=== PATIENT | female | born 1985 | race African-American/Black ===

== ENCOUNTER 2018-04-16 20:15 | Emergency (ER) | payer OTHER ==
[~2018-04-16] VITALS: Ht 149.9 cm; Wt 77.7 kg
[2018-04-17] MEDS ORDERED: DIPHENHYDRAMINE 50MG/ML VIAL IV ONE (00:30)
[2018-04-17] MEDS ORDERED: METOCLOPRAMIDE HCL 10MG/2ML VIAL IV ONE (00:30)
[2018-04-17] MEDS ORDERED: SODIUM CHLORIDE 0.9% 1,000 ML IV ONE (00:30)
[2018-04-17 01:02] LABS: CLARITY URINE CLEAR (CLEAR); COLOR URINE YELLOW (YELLOW); KETONES URINE NEGATIVE (NEGATIVE); LEUKOCYTE ESTERASE URINE NEGATIVE (NEGATIVE); NITRITE URINE NEGATIVE (NEGATIVE); OCCULT BLOOD URINE NEGATIVE (NEGATIVE); PROTEIN URINE NEGATIVE (NEGATIVE); SPECIFIC GRAVITY URINE 1.011 (1.005-1.030); UROBILINOGEN URINE 0.2 E.U./dL (0.2-1.0)
[2018-04-17 03:10] VITALS: BP 130/77
== END 2018-04-17 03:29 | disposition home or self-care (01) ==
LOC: ER 20:43
DX: G43.909 Migraine, unspecified, not intractable, without status migrainosus (principal); F17.200 Nicotine dependence, unspecified, uncomplicated; Z88.0 Allergy status to penicillin; Z88.1 Allergy status to other antibiotic agents; Z90.710 Acquired absence of both cervix and uterus
CPT/HCPCS: 81003; 81025; 96374; 96375; 99284; J1200; J2765; J7030; Z7610

== ENCOUNTER 2022-09-27 01:00 | Inpatient (IN) | payer MEDICAID, OTHER ==
[~2022-09-27] VITALS: Ht 149.9 cm; Wt 92.1 kg
[2022-09-27] MEDS ORDERED: LOSARTAN POTASSIUM 25 MG TABLET PO ONE (02:45)
[2022-09-27 03:12] LABS: BASOPHILS % 0.7 % (0.0-2.0); EOSINOPHILS % 1.5 % (0.0-5.0); HEMATOCRIT. 39.1 % (36.0-48.0); HEMOGLOBIN. 12.9 g/dL (12.0-16.0); LYMPHOCYTES % 11.2 % (20.0-50.0); MEAN CORPUSCULAR HEMOGLOBIN 27.5 pg (28.0-32.0); MEAN CORPUSCULAR VOLUME 83.6 fL (81.0-99.0); MEAN PLATELET VOLUME 8.1 fl (7.4-10.4); NEUTROPHILS % 82.6 % (40.0-76.0); PLATELET 443 x1000/uL (130-400); RED BLOOD CELL COUNT 4.68 mill/uL (4.2-5.4); RED CELL DISTRIBUTION WIDTH 15.6 % (11.6-14.6)
[2022-09-27 03:17] LABS: BG BASE EXCESS -2.9 mmol/L (-2.0-2.0); BG CARBOXYHEMOGLOBIN 0.6 % (0.5-1.5); BG DEOXYHEMOGLOBIN 7.4 % (0.0-5.0); BG FRACTION INSPIRED OXYGEN 21; BG HCO3 ACT 20.2 mmol/L (22.0-26.0); BG METHEMOGLOBIN 0.4 % (0.0-1.5); BG OXYGEN SATURATION 92.5 % (92.0-98.5); BG OXYHEMOGLOBIN 91.6 % (94.0-97.0); BG PCO2 30.8 mmHg (35.0-45.0); BG PH 7.435 (7.350-7.450); BG PO2 64.8 mmHg (75.0-100.0); BG SAMPLE SITE RIGHT RADIAL; BG TOTAL HEMOGLOBIN 13.8 g/dL (12.0-18.0); BG VENT MODE ROOM AIR
[2022-09-27 03:27] LABS: CHLORIDE 109 mEq/L (98-107)
[2022-09-27] MEDS ORDERED: IOHEXOL-350 100 ML BOTTLE ONE (08:26)
[2022-09-27] MEDS ORDERED: LEVOFLOXACIN 500MG PREMIX 100 ML IV ONE (09:00)
[2022-09-27] MEDS ORDERED: ONDANSETRON HCL 4MG/2ML INJ IV PRN (10:30)
[2022-09-27] MEDS ORDERED: HYDROCODONE/ACETAMINOPHEN 5/325MG TABLET PO PRN (10:30)
[2022-09-27] MEDS ORDERED: DOCUSATE SODIUM 100MG CAPSULE PO PRN (10:30)
[2022-09-27] MEDS ORDERED: MAGNESIUM/ALUMINUM HYDROXIDE/SIMETHICONE 30ML UDC PO PRN (10:30)
[2022-09-27] MEDS ORDERED: ACETAMINOPHEN 325MG TABLET PO PRN ×2 (10:30)
[2022-09-27] MEDS ORDERED: NALOXONE HCL 0.4MG/ML VIAL IV PRN (11:00)
[2022-09-27] MEDS: AMLODIPINE 10MG TABLET PO SCH (11:24)
[2022-09-27] MEDS: ENOXAPARIN 40MG/0.4ML SYR SUBCUT SCH (11:24)
[2022-09-27 11:59] LABS: CLARITY URINE CLEAR (CLEAR); COLOR URINE YELLOW (YELLOW); KETONES URINE NEGATIVE (NEGATIVE); LEUKOCYTE ESTERASE URINE NEGATIVE (NEGATIVE); NITRITE URINE NEGATIVE (NEGATIVE); OCCULT BLOOD URINE 3+ (NEGATIVE); PROTEIN URINE NEGATIVE (NEGATIVE); SPECIFIC GRAVITY URINE 1.072 (1.005-1.030)
[2022-09-27] MEDS: IPRATROPIUM/ALBUTEROL 0.5-3(2.5)MG/3ML NEB HHN SCH ×2 (12:15→15:23)
[2022-09-27 12:30] LABS: *AMPHETAMINES SCREEN URINE NEGATIVE (NEGATIVE); *BARBITURATES SCREEN URINE NEGATIVE (NEGATIVE); *BENZODIAZEPINES SCREEN URINE NEGATIVE (NEGATIVE); *COCAINE SCREEN URINE NEGATIVE (NEGATIVE); METHADONE URINE SCREEN NEGATIVE (NEGATIVE); OPIATES URINE SCREEN NEGATIVE (NEGATIVE); PHENCYCLIDINE URINE SCREEN NEGATIVE (NEGATIVE)
[2022-09-27 12:45] LABS: CANNABINOID URINE SCREEN PRESUMTIVE POSITIVE (NEGATIVE)
[2022-09-27 13:12] LABS: BG CARBOXYHEMOGLOBIN 0.5 % (0.5-1.5); BG DEOXYHEMOGLOBIN 2.2 % (0.0-5.0); BG FRACTION INSPIRED OXYGEN 34; BG HCO3 ACT 21.2 mmol/L (22.0-26.0); BG METHEMOGLOBIN 0.4 % (0.0-1.5); BG OXYGEN SATURATION 97.8 % (92.0-98.5); BG OXYHEMOGLOBIN 96.9 % (94.0-97.0); BG PCO2 35.3 mmHg (35.0-45.0); BG PH 7.396 (7.350-7.450); BG PO2 100.7 mmHg (75.0-100.0); BG SAMPLE SITE RIGHT RADIAL; BG TOTAL HEMOGLOBIN 13.6 g/dL (12.0-18.0); BG VENT MODE NASAL CANNULA
[2022-09-27] MEDS ORDERED: LOSARTAN POTASSIUM 25 MG TABLET PO SCH (17:00)
[2022-09-27 20:00] VITALS: BP 150/100
[2022-09-27] MEDS: ALBUTEROL (0.083%) 2.5MG/3ML NEB HHN SCH (20:17)
[2022-09-27] MEDS: IPRATROPIUM BROMIDE (0.02%) 0.5MG/2.5ML NEB HHN SCH (20:17)
[2022-09-27] MEDS: FAMOTIDINE 20MG/2ML VIAL IV SCH (20:35)
[2022-09-27 21:57] VITALS: BP 133/102
[2022-09-28] VITALS: BP 153/100
[2022-09-28] MEDS: ALBUTEROL (0.083%) 2.5MG/3ML NEB HHN SCH ×6 (00:46→21:46)
[2022-09-28] MEDS: IPRATROPIUM BROMIDE (0.02%) 0.5MG/2.5ML NEB HHN SCH ×6 (00:46→21:46)
[2022-09-28 02:54] LABS: CREATINE KINASE MB FRACTION 1.2 ng/mL (0.5-3.6)
[2022-09-28 04:00] VITALS: BP 142/93
[2022-09-28 07:19] LABS: BASOPHILS % 0.5 % (0.0-2.0); EOSINOPHILS % 1.7 % (0.0-5.0); HEMATOCRIT. 38.5 % (36.0-48.0); HEMOGLOBIN. 12.8 g/dL (12.0-16.0); LYMPHOCYTES % 12.6 % (20.0-50.0); MEAN CORPUSCULAR HEMOGLOBIN 27.6 pg (28.0-32.0); MEAN CORPUSCULAR VOLUME 83.1 fL (81.0-99.0); MEAN PLATELET VOLUME 8.5 fl (7.4-10.4); MONOCYTES % 5.9 % (2.0-8.0); NEUTROPHILS % 79.3 % (40.0-76.0); PLATELET 424 x1000/uL (130-400); RED BLOOD CELL COUNT 4.64 mill/uL (4.2-5.4); RED CELL DISTRIBUTION WIDTH 16.2 % (11.6-14.6)
[2022-09-28 07:37] LABS: CHLORIDE 103 mEq/L (98-107)
[2022-09-28 07:57] LABS: HDL CHOLESTEROL 34 mg/dL (40-59); LDL CHOLESTEROL 83 mg/dL (5-100); T4 FREE 1.17 ng/dL (0.76-1.46)
[2022-09-28 08:00] VITALS: BP 148/105
[2022-09-28] MEDS: FAMOTIDINE 20MG/2ML VIAL IV SCH (09:14)
[2022-09-28] MEDS: ENOXAPARIN 40MG/0.4ML SYR SUBCUT SCH (09:14)
[2022-09-28] MEDS: AMLODIPINE 10MG TABLET PO SCH (09:15)
[2022-09-28] MEDS: GUAIFENESIN 200MG/10ML SUGAR FREE UDC PO PRN ×2 (10:06→16:14)
[2022-09-28] MEDS ORDERED: LEVOFLOXACIN 500MG PREMIX 100 ML IV SCH (10:30)
[2022-09-28] MEDS ORDERED: PNEUMOCOCCAL 23-VAL P-SAC VAC 0.5 ML IM ONE (11:00)
[2022-09-28] MEDS ORDERED: INFLUENZA VACCINE 05/PF 0.5 ML SYRINGE IM ONE (11:00)
[2022-09-28] MEDS: CLONIDINE 0.1MG TABLET PO PRN (12:47)
[2022-09-28 13:00] VITALS: BP 153/103
[2022-09-28 16:00] VITALS: BP 135/88
[2022-09-28] MEDS ORDERED: LOSARTAN POTASSIUM 50 MG TABLET PO SCH (17:00)
[2022-09-28 20:00] VITALS: BP 149/86
[2022-09-28] MEDS ORDERED: DIPHENHYDRAMINE 25MG CAPSULE PO PRN (21:30)
[2022-09-28] MEDS: FAMOTIDINE 20MG TABLET PO SCH (21:37)
[2022-09-29] VITALS: BP 136/85
[2022-09-29] MEDS: IPRATROPIUM BROMIDE (0.02%) 0.5MG/2.5ML NEB HHN SCH ×4 (00:48→12:11)
[2022-09-29] MEDS: ALBUTEROL (0.083%) 2.5MG/3ML NEB HHN SCH ×4 (00:48→12:11)
[2022-09-29 04:00] VITALS: BP 135/85
[2022-09-29 08:00] VITALS: BP 166/106
[2022-09-29] MEDS ORDERED: ENOXAPARIN 30MG/0.3ML SYR SUBCUT SCH (09:00)
[2022-09-29] MEDS: FAMOTIDINE 20MG TABLET PO SCH (09:05)
[2022-09-29] MEDS: CLONIDINE 0.1MG TABLET PO PRN (09:05)
[2022-09-29] MEDS: AMLODIPINE 10MG TABLET PO SCH (09:06)
[2022-09-29] MEDS ORDERED: LEVO750T68 PO (09:59)
[2022-09-29] MEDS ORDERED: AMLO10TA80 PO (09:59)
[2022-09-29] MEDS ORDERED: LOSA50TA3 PO (09:59)
[2022-09-29] MEDS ORDERED: LEVOFLOXACIN 250MG TABLET PO SCH (11:30)
[2022-09-29 12:00] VITALS: BP 148/107
[2022-09-29 12:20] LABS: BASOPHILS % 0.4 % (0.0-2.0); EOSINOPHILS % 1.1 % (0.0-5.0); HEMATOCRIT. 40.6 % (36.0-48.0); HEMOGLOBIN. 13.5 g/dL (12.0-16.0); MEAN CORPUSCULAR HEMOGLOBIN 27.6 pg (28.0-32.0); MEAN CORPUSCULAR VOLUME 82.9 fL (81.0-99.0); MEAN PLATELET VOLUME 8.3 fl (7.4-10.4); MONOCYTES % 5.6 % (2.0-8.0); NEUTROPHILS % 79.9 % (40.0-76.0); PLATELET 556 x1000/uL (130-400); RED CELL DISTRIBUTION WIDTH 16.6 % (11.6-14.6)
[2022-09-29 13:05] LABS: CHLORIDE 106 mEq/L (98-107)
[2022-09-29 14:28] VITALS: BP 148/107
== END 2022-09-29 14:44 | disposition home or self-care (01) | DRG 720 ==
LOC: ER 01:00 → EDBEDREQTM 07:56 → EDBEDREQ 07:56 → MICUSO 08:59 → EDBEDREQ 09:07 → EDBEDREQTM 09:07 → EDBEDREQSVC 09:07 → SUPCPDRO 09:12 → 6EST 17:32
PROVIDERS: ADMIT Internal Medicine; ATTEND Internal Medicine
DX: A41.9 Sepsis, unspecified organism (principal); J96.01 Acute respiratory failure with hypoxia; J18.9 Pneumonia, unspecified organism; E11.65 Type 2 diabetes mellitus with hyperglycemia; F12.10 Cannabis abuse, uncomplicated; I16.0 Hypertensive urgency; E66.01 Morbid (severe) obesity due to excess calories; Z20.822 Contact with and (suspected) exposure to COVID-19; F41.9 Anxiety disorder, unspecified; I10 Essential (primary) hypertension; J98.11 Atelectasis; Z98.51 Tubal ligation status; Z88.0 Allergy status to penicillin; Z90.721 Acquired absence of ovaries, unilateral; Z82.49 Family history of ischemic heart disease and other diseases of the circulatory system; Z87.891 Personal history of nicotine dependence; Z68.41 Body mass index [BMI] 40.0-44.9, adult
CPT/HCPCS: 36415; 36600; 71045; 71275; 80048; 80053; 80061; 80305; 81003; 82375; 82550; 82553; 82805; 83036; 83605; 84145; 84439; 84443; 84481; 84484; 85025; 85379; 87426; 87804; 93005; 93306; 93970; 94640; 99285; C1893; J1650; J1956; J3490; Q0163; Q9967

== ENCOUNTER 2022-10-29 17:27 | Inpatient (IN) | payer MEDICAID ==
[~2022-10-29] VITALS: Ht 149.9 cm; Wt 84.9 kg
[~2022-10-29 17:27] MED LIST: AMLO10TA80 PO; LEVO750T68 PO; LOSA50TA3 PO
[2022-10-29] MEDS ORDERED: ALBUTEROL (0.5%) 2.5MG/0.5ML NEB HHN ONE (18:00)
[2022-10-29] MEDS ORDERED: SODIUM CHLORIDE 0.9% 1,000 ML IV ONE (18:00)
[2022-10-29 18:48] LABS: EOSINOPHILS % 1.8 % (0.0-5.0); HEMATOCRIT. 39.5 % (36.0-48.0); HEMOGLOBIN. 12.9 g/dL (12.0-16.0); LYMPHOCYTES % 11.6 % (20.0-50.0); MEAN CORPUSCULAR HEMOGLOBIN 26.7 pg (28.0-32.0); MEAN CORPUSCULAR VOLUME 81.6 fL (81.0-99.0); MEAN PLATELET VOLUME 8.5 fl (7.4-10.4); MONOCYTES % 5.9 % (2.0-8.0); NEUTROPHILS % 79.7 % (40.0-76.0); PLATELET 528 x1000/uL (130-400); RED BLOOD CELL COUNT 4.84 mill/uL (4.2-5.4); RED CELL DISTRIBUTION WIDTH 17.2 % (11.6-14.6)
[2022-10-29 18:55] LABS: PROTHROMBIN TIME 11.1 sec (9.6-11.0)
[2022-10-29 18:58] LABS: CHLORIDE 105 mEq/L (98-107)
[2022-10-29 19:06] LABS: HCG SCREEN NEGATIVE
[2022-10-29 19:11] LABS: ETHANOL BLOOD < 10 mg/dL
[2022-10-29] MEDS ORDERED: METHYLPREDNISOLONE SOD SUCC 125 MG/2 ML VIAL IV ONE (20:45)
[2022-10-29] MEDS ORDERED: ALBUTEROL (0.083%) 2.5MG/3ML NEB ONE (20:49)
[2022-10-29 21:14] LABS: CLARITY URINE CLOUDY (CLEAR); COLOR URINE YELLOW (YELLOW); KETONES URINE NEGATIVE (NEGATIVE); LEUKOCYTE ESTERASE URINE NEGATIVE (NEGATIVE); NITRITE URINE NEGATIVE (NEGATIVE); OCCULT BLOOD URINE NEGATIVE (NEGATIVE); PROTEIN URINE NEGATIVE (NEGATIVE); SPECIFIC GRAVITY URINE 1.008 (1.005-1.030); UROBILINOGEN URINE 0.2 E.U./dL (0.2-1.0)
[2022-10-29 21:26] LABS: *AMPHETAMINES SCREEN URINE NEGATIVE (NEGATIVE); *BARBITURATES SCREEN URINE NEGATIVE (NEGATIVE); *BENZODIAZEPINES SCREEN URINE NEGATIVE (NEGATIVE); METHADONE URINE SCREEN NEGATIVE (NEGATIVE); OPIATES URINE SCREEN NEGATIVE (NEGATIVE); PHENCYCLIDINE URINE SCREEN NEGATIVE (NEGATIVE)
[2022-10-29 21:28] LABS: *COCAINE SCREEN URINE PRESUMTIVE POSITIVE (NEGATIVE); CANNABINOID URINE SCREEN PRESUMTIVE POSITIVE (NEGATIVE)
[2022-10-29] MEDS ORDERED: IOHEXOL-350 100 ML BOTTLE ONE (21:37)
[2022-10-29] MEDS ORDERED: IPRATROPIUM/ALBUTEROL 0.5-3(2.5)MG/3ML NEB NEB PRN (23:00)
[2022-10-29] MEDS ORDERED: ACETAMINOPHEN 325MG TABLET PO PRN ×2 (23:00)
[2022-10-29] MEDS ORDERED: GUAIFENESIN 200MG/10ML SUGAR FREE UDC PO PRN (23:00)
[2022-10-29] MEDS ORDERED: CLONIDINE 0.1MG TABLET PO PRN (23:00)
[2022-10-29] MEDS ORDERED: ONDANSETRON HCL 4MG/2ML INJ IV PRN (23:00)
[2022-10-29] MEDS ORDERED: MAGNESIUM/ALUMINUM HYDROXIDE/SIMETHICONE 30ML UDC PO PRN (23:00)
[2022-10-30] VITALS (9 sets, daily range): BP systolic 131–153; BP diastolic 74–96
[2022-10-30] MEDS: SODIUM CHLORIDE 0.9% 1,000 ML IV SCH ×3 (02:17→19:30)
[2022-10-30 08:01] LABS: HEMATOCRIT. 38.1 % (36.0-48.0); HEMOGLOBIN. 12.4 g/dL (12.0-16.0); MEAN CORPUSCULAR HEMOGLOBIN 26.7 pg (28.0-32.0); MEAN PLATELET VOLUME 8.5 fl (7.4-10.4); PLATELET 546 x1000/uL (130-400); RED BLOOD CELL COUNT 4.65 mill/uL (4.2-5.4)
[2022-10-30 08:33] LABS: CHLORIDE 102 mEq/L (98-107)
[2022-10-30 08:37] LABS: PHOSPHORUS 2.8 mg/dL (2.5-4.9)
[2022-10-30] MEDS: ENOXAPARIN 40MG/0.4ML SYR SUBCUT SCH (08:59)
[2022-10-30] MEDS ORDERED: INFLUENZA VACCINE 05/PF 0.5 ML SYRINGE IM ONE (11:00)
[2022-10-30] MEDS ORDERED: PNEUMOCOCCAL 23-VAL P-SAC VAC 0.5 ML IM ONE (11:00)
[2022-10-30 11:20] LABS: NUCLEATED RED BLOOD CELLS 1 /100 WBC; PLATELET ESTIMATE INCREASED
[2022-10-30] MEDS: DOXYCYCLINE HYCLATE 100MG CAPSULE PO SCH ×2 (12:30→18:14)
[2022-10-30] MEDS ORDERED: DEXTROSE 50% WATER 50ML SYRINGE IV PRN (15:00)
[2022-10-30] MEDS ORDERED: IPRATROPIUM BROMIDE (0.02%) 0.5MG/2.5ML NEB HHN PRN (15:15)
[2022-10-30] MEDS: BLOOD SUGAR DIAGNOSTIC STRIP TEST SCH ×2 (16:50→21:00)
[2022-10-30] MEDS: INSULIN LISPRO 100 UNITS/ML SUBCUT SCH ×2 (17:20→21:00)
[2022-10-30] MEDS: PREDNISONE 20MG TABLET PO SCH (18:14)
[2022-10-31] VITALS: BP 125/75
[2022-10-31 04:00] VITALS: BP 137/77
[2022-10-31] MEDS: SODIUM CHLORIDE 0.9% 1,000 ML IV SCH (05:20)
[2022-10-31] MEDS: INSULIN LISPRO 100 UNITS/ML SUBCUT SCH ×2 (06:30→12:20)
[2022-10-31] MEDS: BLOOD SUGAR DIAGNOSTIC STRIP TEST SCH ×2 (06:30→11:50)
[2022-10-31 06:42] LABS: BASOPHILS % 0.1 % (0.0-2.0); HEMATOCRIT. 36.8 % (36.0-48.0); LYMPHOCYTES % 9.3 % (20.0-50.0); MEAN CORPUSCULAR HEMOGLOBIN 26.7 pg (28.0-32.0); MEAN CORPUSCULAR VOLUME 81.7 fL (81.0-99.0); MEAN PLATELET VOLUME 8.5 fl (7.4-10.4); MONOCYTES % 5.5 % (2.0-8.0); NEUTROPHILS % 85.1 % (40.0-76.0); PLATELET 563 x1000/uL (130-400); RED BLOOD CELL COUNT 4.51 mill/uL (4.2-5.4); RED CELL DISTRIBUTION WIDTH 17.3 % (11.6-14.6)
[2022-10-31 06:52] LABS: CHLORIDE 106 mEq/L (98-107)
[2022-10-31 08:00] VITALS: BP 126/81
[2022-10-31] MEDS: PREDNISONE 20MG TABLET PO SCH (08:19)
[2022-10-31] MEDS: DOXYCYCLINE HYCLATE 100MG CAPSULE PO SCH (08:19)
[2022-10-31] MEDS: ENOXAPARIN 40MG/0.4ML SYR SUBCUT SCH (08:20)
[2022-10-31 12:00] VITALS: BP 126/81
[2022-10-31] MEDS ORDERED: ALBU6.7H3 INH (12:54)
[2022-10-31] MEDS ORDERED: DOXY100C5 PO (12:54)
[2022-10-31] MEDS ORDERED: P20 PO (12:54)
[2022-10-31] MEDS ORDERED: LOSA50TA3 PO (12:54)
[2022-10-31] MEDS ORDERED: BLOO-1812 MC (14:14)
[2022-10-31 15:20] VITALS: BP 126/81
== END 2022-10-31 15:50 | disposition home or self-care (01) | DRG 720 ==
LOC: ER 17:27 → MICUSO 22:07 → EDBEDREQTM 22:09 → EDBEDREQ 22:09 → 3WST 10-30 01:22
PROVIDERS: ADMIT Internal Medicine; ATTEND Internal Medicine
DX: A41.9 Sepsis, unspecified organism (principal); J96.01 Acute respiratory failure with hypoxia; I11.0 Hypertensive heart disease with heart failure; J18.9 Pneumonia, unspecified organism; I50.22 Chronic systolic (congestive) heart failure; E11.9 Type 2 diabetes mellitus without complications; Z20.822 Contact with and (suspected) exposure to COVID-19; E66.01 Morbid (severe) obesity due to excess calories; F41.9 Anxiety disorder, unspecified; Z87.01 Personal history of pneumonia (recurrent); J45.901 Unspecified asthma with (acute) exacerbation; F12.929 Cannabis use, unspecified with intoxication, unspecified; F14.129 Cocaine abuse with intoxication, unspecified; F17.210 Nicotine dependence, cigarettes, uncomplicated; Z88.0 Allergy status to penicillin; Z88.8 Allergy status to other drugs, medicaments and biological substances; Z68.37 Body mass index [BMI] 37.0-37.9, adult; Z23 Encounter for immunization
CPT/HCPCS: 36415; 71045; 71275; 80048; 80053; 80305; 80320; 81003; 82962; 83036; 83735; 84100; 84145; 84703; 85025; 87426; 93005; 94640; 99285; C9803; J1650; J2930; J7030; J7512; Q9967; G0480

== ENCOUNTER 2022-12-02 08:15 | Emergency (ER) | payer MEDICAID ==
[~2022-12-02] VITALS: Ht 149.9 cm; Wt 82.0 kg
[~2022-12-02 08:15] MED LIST changes: +ALBU6.7H3 INH; -AMLO10TA80 PO; +BLOO-1812 MC; +DOXY100C5 PO; -LEVO750T68 PO; +P20 PO
[2022-12-02 08:18] VITALS: BP 172/119
[2022-12-02] MEDS ORDERED: ALBUTEROL (0.083%) 2.5MG/3ML NEB HHN STA (08:20)
[2022-12-02] MEDS ORDERED: IPRATROPIUM BROMIDE (0.02%) 0.5MG/2.5ML NEB HHN STA (08:20)
[2022-12-02] MEDS ORDERED: MAGNESIUM 2 G PREMIX 50 ML IV STA (08:20)
[2022-12-02] MEDS ORDERED: METHYLPREDNISOLONE SOD SUCC 125 MG/2 ML VIAL IV STA (08:20)
[2022-12-02 08:58] LABS: CHLORIDE 105 mEq/L (98-107)
[2022-12-02 09:04] LABS: BASOPHILS % 0.7 % (0.0-2.0); EOSINOPHILS % 3.8 % (0.0-5.0); HEMATOCRIT. 43.2 % (36.0-48.0); HEMOGLOBIN. 14.3 g/dL (12.0-16.0); LYMPHOCYTES % 14.3 % (20.0-50.0); MEAN CORPUSCULAR HEMOGLOBIN 25.8 pg (28.0-32.0); MEAN CORPUSCULAR VOLUME 77.8 fL (81.0-99.0); MEAN PLATELET VOLUME 8.3 fl (7.4-10.4); MONOCYTES % 5.7 % (2.0-8.0); NEUTROPHILS % 75.5 % (40.0-76.0); PLATELET 615 x1000/uL (130-400); RED BLOOD CELL COUNT 5.55 mill/uL (4.2-5.4); RED CELL DISTRIBUTION WIDTH 16.7 % (11.6-14.6)
== END 2022-12-02 13:02 | disposition home or self-care (01) ==
LOC: ER 08:15 → CANBEDREQ 22:59
DX: J45.901 Unspecified asthma with (acute) exacerbation (principal); I10 Essential (primary) hypertension; Z79.899 Other long term (current) drug therapy; Z88.0 Allergy status to penicillin
CPT/HCPCS: 36415; 71045; 80053; 83880; 84484; 85025; 93005; 99285

== ENCOUNTER 2025-04-25 11:32 | Emergency (ER) | payer MEDICAID ==
[~2025-04-25] VITALS: Ht 165.1 cm; Wt 72.0 kg
[~2025-04-25 11:32] MED LIST changes: +LOSA-413 PO; -LOSA50TA3 PO
[2025-04-25 11:41] VITALS: O2SAT 100
[2025-04-25] MEDS ORDERED: AZIT250T12 MT (14:10)
[2025-04-25] MEDS ORDERED: P50 MT (14:10)
[2025-04-25] MEDS ORDERED: ALBU90AE INH (14:10)
[2025-04-25 14:32] VITALS: BP 191/116; PULSE 79; RESP 18; TEMP 36.5; O2SAT 100
== END 2025-04-25 14:33 | disposition home or self-care (01) ==
LOC: ER 12:18
DX: J01.90 Acute sinusitis, unspecified (principal); I10 Essential (primary) hypertension; J45.909 Unspecified asthma, uncomplicated; Z79.899 Other long term (current) drug therapy; Z98.51 Tubal ligation status; Z88.0 Allergy status to penicillin; Z88.1 Allergy status to other antibiotic agents
CPT/HCPCS: 99283